=== PATIENT | female | born 1980 | race Caucasian/White ===

== ENCOUNTER → 2016-05-30 | Outpatient (CLI) | payer MEDICARE, MEDICAID ==
[~2016-05-30] MED LIST: ALLEGRA180 MG PO; ARANESP0.04 MG/ML IJ; ASPIRIN 325MG325 MG PO; FOLIC ACID1 MG PO; GILDESS 1/201 TAB PO; HYDRALAZINE50 MG PO; IMURAN50 MG PO; KEPPRA1000 MG PO; KLONOPIN 0.5MG0.5 MG NG; LAMICTAL25 MG PO; LIPITOR40 M1 PO; LISINOPRIL 10MG10 MG PO; METOPROLOL 25 M25 MG PO; NATURE'S BLEND1 T16 PO; NYSTATIN; PREDNISONE 10MG10 MG PO; PRILOSEC20 M1 PO; PROGRAF5 MG PO; ZANTAC 150150 MG PO
[2016-05-30 07:59] LABS: HEMOGLOBIN 11.4 g/dL (12.2-16.2); LYMPH # 1.6 K/mm3 (0.7-4.5)
[2016-05-30 09:33] LABS: BUN 25 mg/dL (7-18)
[2016-05-30 09:50] LABS: GFR (ESTIMATED) 57 ML/MIN (59-)
[2016-06-01 20:29] LABS: MISCELLANEOUS TEST BK QUANT.PCR SER/UR
== END ==
LOC: LAB 07:12
PROVIDERS: Surgery
DX: Z94.0 Kidney transplant status (principal); Z00.00 Encounter for general adult medical examination without abnormal findings; Z79.891 Long term (current) use of opiate analgesic

== ENCOUNTER → 2016-09-10 | Outpatient (CLI) | payer MEDICARE, MEDICAID ==
[2016-09-10 09:07] LABS: HEMOGLOBIN 11.3 g/dL (12.2-16.2); LYMPH % 23.3 % (10-50.0)
[2016-09-10 10:14] LABS: BUN 25 mg/dL (7-18)
[2016-09-10 10:19] LABS: GFR (ESTIMATED) 40 ML/MIN (59-)
== END ==
LOC: LAB 07:24
PROVIDERS: Surgery
DX: Z94.0 Kidney transplant status (principal); Z00.00 Encounter for general adult medical examination without abnormal findings; Z79.891 Long term (current) use of opiate analgesic

== ENCOUNTER → 2016-12-19 | Outpatient (CLI) | payer MEDICARE, MEDICAID ==
[2016-12-19 08:25] LABS: HEMOGLOBIN 10.8 g/dL (12.2-16.2); LYMPH # 1.5 K/mm3 (0.7-4.5); LYMPH % 22.6 % (10-50.0)
[2016-12-19 09:38] LABS: BUN 14 mg/dL (7-18)
[2016-12-19 09:39] LABS: GFR (ESTIMATED) 57 ML/MIN (59-)
== END ==
LOC: LAB 07:32
PROVIDERS: Surgery
DX: Z94.0 Kidney transplant status (principal); Z79.891 Long term (current) use of opiate analgesic

== ENCOUNTER → 2017-01-17 | Outpatient (CLI) | payer MEDICARE, MEDICAID ==
[2017-01-19 10:40] LABS: Iron 64 ug/dL (27-159); Iron Saturation 27 % (15-55); UIBC 175 ug/dL (131-425)
[2017-01-19 16:37] LABS: Haptoglobin 169 mg/dL (34-200); Transferrin 186 mg/dL (200-370)
[2017-01-20 04:39] LABS: Folate (Folic Acid) >20.0 ng/mL (>3.0); Vitamin B12 1966 pg/mL (211-946)
== END ==
LOC: LAB 07:17
DX: Z94.0 Kidney transplant status (principal); Z79.891 Long term (current) use of opiate analgesic

== ENCOUNTER → 2017-02-03 | Outpatient (CLI) | payer MEDICARE, MEDICAID ==
[2017-02-03 08:50] LABS: HEMOGLOBIN 10.9 g/dL (12.2-16.2); LYMPH # 1.7 K/mm3 (0.7-4.5); LYMPH % 21.9 % (10-50.0)
[2017-02-03 09:36] LABS: BUN 13 mg/dL (7-18); GFR (ESTIMATED) 57 ML/MIN (59-)
== END ==
LOC: LAB 07:22
PROVIDERS: Surgery
DX: Z94.0 Kidney transplant status (principal); Z79.891 Long term (current) use of opiate analgesic

== ENCOUNTER → 2017-03-11 | Outpatient (CLI) | payer MEDICARE, MEDICAID ==
[2017-03-11 09:30] LABS: HEMOGLOBIN 9.9 g/dL (12.2-16.2); LYMPH # 1.6 K/mm3 (0.7-4.5); LYMPH % 16.5 % (10-50.0)
[2017-03-11 10:21] LABS: BUN 16 mg/dL (7-18)
[2017-03-11 10:25] LABS: GFR (ESTIMATED) 57 ML/MIN (59-)
== END ==
LOC: LAB 07:24
PROVIDERS: Surgery
DX: Z94.0 Kidney transplant status (principal); Z00.00 Encounter for general adult medical examination without abnormal findings; Z79.891 Long term (current) use of opiate analgesic